=== PATIENT | female | born 1990 | race American Indian/Alaskan Native ===

== ENCOUNTER 2018-06-19 00:43 | Emergency (ER) | payer MEDICAID ==
[2018-06-19 01:04] VITALS: BP 129/80
[2018-06-19] MEDS ORDERED: XYLOCAINE 1% 20 mL INFILTRATI ONE (01:50)
[2018-06-19] MEDS ORDERED: BOOSTRIX IM ONE (01:50)
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
[2018-06-19] MEDS ORDERED: TYLENOL #3 PO ONE (02:05)
== END 2018-06-19 04:06 | disposition home or self-care (01) ==
LOC: ED 00:43
DX: S01.511A Laceration without foreign body of lip, initial encounter (principal); Z87.891 Personal history of nicotine dependence; W51.XXXA Accidental striking against or bumped into by another person, initial encounter; Y93.89 Activity, other specified; Y92.89 Other specified places as the place of occurrence of the external cause; Y99.8 Other external cause status
CPT/HCPCS: 90471; 90715; 99282

== ENCOUNTER 2019-06-18 16:47 | Outpatient (CLI) | payer MEDICAID ==
--- NOTE | 2019-06-18 19:25 | Ultrasound Report ---
LIMITED OBSTETRICAL ULTRASOUND Indication: decreased fm Shows a normal-appearing intrauterine with an estimated gestational age of 35 weeks 4 days. I do not see a significant discrepancy between head and body measurements. No anomalies are seen. Cardiac activity was noted at 150 bpm. Fetus is in a breech position. Placen ta is anterior and free of the internal cervical os. Estimated weight is 2739 g +/- 405 g. Am niotic fluid volume appears appropriate for age. MELECIO measurement was 8.3 cm which is within normal li mits. BIOPHYSICAL PROFILE breathing movements 2/2 movements 0/2 posturing tone 0/2 Qualitative amniotic fluid volume 2/2 Total score 4/8 Signer Name: Caleb Rivera MD Signed: 06/18/2019 7:20 PM Workstation Name: [id number]
[2019-06-18] MEDS ORDERED: LACTATED RINGERS 1,000 ML ONE ×2 (19:26→20:13)
[2019-06-18] MEDS ORDERED: LACTATED RINGERS 1,000 ML IV ONE (20:38)
[2019-06-18 22:45] LABS: Hematocrit 32.4 % (30.3-42.9); Hemoglobin 10.9 gm/dl (10.1-14.3); Mean Corpuscular HGB Conc 34 % (30-34); Mean Corpuscular Volume 90 fl (79-97); Platelet Count 210 K/mm3 (140-440); Red Blood Count 3.61 M/mm3 (3.65-5.03); Red Cell Distribution Width 13.2 % (13.2-15.2)
[2019-06-19] MEDS: LACTATED RINGERS 1,000 ML IV SCH ×3 (00:28→11:15)
--- NOTE | 2019-06-19 10:35 | Ultrasound Report ---
ULTRASOUND OBSTETRIC LIMITED INDICATION / CLINICAL INFORMATION: Evaluate amniotic fluid. TECHNIQUE: Transabdominal ultrasound imaging. COMPARISON: None available. FINDINGS: HEART RATE (beats per minute): 138 AMNIOTIC FLUID INDEX (cm) = 7.1 cm. Borderline low. PRESENTATION: Breech. ADDITIONAL FINDINGS: None. IMPRESSION: MELECIO equals 7.1 cm. Signer Name: Miki Sarkar Jr, MD Signed: 06/19/2019 10:30 AM Workstation Name: [id number]
--- NOTE | 2019-06-19 11:31 | History and Physical Report ---
History of Present Illness Date of examination: 06/19/19 Chief complaint: Patient admitted overnight by Dr Casas with decreased movement for observation. She is a at 37+3/7 weeks with JESSICA 07/07/19. Previous c/section for twins, decline TOLAC, desires BTL. Overnight patient had episodes of no feta monitoring. Evaluation of tracing this morning reveals an overall Category 1 tracing. Patient co-managed with [facility] for maternal obesity and late PNC History of present illness: Meds:PNV, Valtrex Allergies:NKDA POBHX: NSVDx3, C/sectionx (twins) PGYNHX: / +ve HSV PSHX: c/section PFHX: DM type 1 Past History - Obstetrical History : 5 Medications and Allergies Allergies Allergy/AdvReac Type Severity Reaction Status Date / Time No Known Allergies Allergy Verified 06/18/19 19:36 Home Medications Medication Instructions Recorded Confirmed Last Taken Type Butalbit/Acetamin/Caff/Codeine 1 each PO Q4H PRN #16 capsule 02/24/14 Unknown Rx [Fioricet-Cod 94-574-05-30 Cap] HYDROcodone/APAP 5-325 [[place] 1 each PO Q6HR PRN #14 tablet 05/18/14 Unknown Rx 5/325] Penicillin Vk [Veetids TAB] 500 mg PO QID #28 tablet 05/18/14 Unknown Rx Promethazine [Phenergan] 25 mg PO Q6H PRN #14 tablet 05/18/14 Unknown Rx Ondansetron [Zofran Odt] 4 mg PO Q6H #14 tab.rapdis 07/02/14 Unknown Rx Acetaminophen/Codeine [Tylenol 1 tab PO Q6H PRN #12 tab 06/19/18 Unknown Rx /Codeine # 3 tab] Sulfamethoxazole/Trimethoprim 1 each PO BID #14 tablet 06/19/18 Unknown Rx [Bactrim DS TAB] Active Meds: Active Medications Lactated Ringer's (Lactated Ringers) 1,000 mls @ 125 mls/hr IV DIRECT LUCIANO Last Admin: 06/19/19 11:15 Dose: 125 mls/hr Documented by: - Vital Signs Vital signs: Vital Signs Temp Pulse Resp BP 98.3 F 81 20 111/67 06/18/19 17:59 06/18/19 17:59 06/18/19 17:59 06/18/19 17:59 Temp Pulse Resp BP Pulse Ox 97.7 F 67 18 116/57 99 06/19/19 08:35 06/19/19 08:36 06/19/19 08:35 06/19/19 08:36 06/18/19 20:44 Results Result Diagrams: 06/18/19 22:21 Abnormal lab results 06/18/19 Range/Units 22:21 RBC 3.61 L (3.65-5.03) M/mm3 All other labs normal. Assessment and Plan IUP at 37+3/7 weeks decreased movement previous c/section Patient declines continuous monitoring, I have advised she stay for a compete reactive NST but she declines BPP 6/8 this morning(repeat for 4/8 last night on admission) 2 points off for breathing As patient is not in labor and declines to stay for further observation she will be discharged to home with follow upon Saturday and testing. movement and labor precautions. Kiran Whitehead MD
[2019-06-19 11:33] VITALS: BP 109/51
--- NOTE | 2019-06-22 08:20 | Ultrasound Report ---
. ULTRASOUND BIOPHYSICAL PROFILE INDICATION: repeat bpp. well-being COMPARISON: 06/18/2019 FINDINGS: heart rate is 145 beats per minute. breathing movement = 0 Gross body movement = 2 tone = 2 Qualitative amniotic fluid volume = 2 IMPRESSION: biophysical profile = 02/07 Signer Name: Miki Sarkar Jr, MD Signed: 06/22/2019 8:15 AM Workstation Name: [id number]
== END 2019-06-19 12:05 | disposition home or self-care (01) ==
LOC: TRG 16:47 → LD 21:32 → TRG 06-19 12:05
PROVIDERS: ATTEND Obstetrics & Gynecology
DX: O36.8130 Decreased fetal movements, third trimester, not applicable or unspecified (principal); O32.1XX0 Maternal care for breech presentation, not applicable or unspecified; O47.1 False labor at or after 37 completed weeks of gestation; Z3A.37 37 weeks gestation of pregnancy
CPT/HCPCS: 36415; 76815; 76816; 76819; 85027; 86592; 86850; 86900; 86901; 96360; 96361; J7120

== ENCOUNTER 2019-06-19 19:23 | Outpatient (CLI) | payer MEDICAID ==
[2019-06-19 21:43] LABS: Bilirubin,Urine NEG (Negative); Blood,Urine SM (Negative); Color,Urine Straw (Yellow); Mucus,Urine FEW /HPF; Protein,Urine <15 mg/dL mg/dL (Negative); Urobilinogen,Urine < 2.0 mg/dL (<2.0); WBC,Urine < 1.0 /HPF (0.0-6.0)
[2019-06-19 22:05] LABS: Amphetamine Screen,Urine PRESUMPTIVE NEGATIVE; Benzodiazepines Screen,Urine PRESUMPTIVE NEGATIVE; Cannabinoid Screen,Urine PRESUMPTIVE NEGATIVE; Cocaine Screen,Urine PRESUMPTIVE NEGATIVE; Methadone Screen,Urine PRESUMPTIVE NEGATIVE; Opiate Screen,Urine PRESUMPTIVE NEGATIVE
--- NOTE | 2019-06-19 22:30 | Ultrasound Report ---
Biophysical profile FINDINGS: Single fetus is identified in breech presentation. heart rate is 145 bpm. Amniotic fl uid volume is borderline low at 7.1 cm. breathing, movement, tone and qualitative A FI all score 2 for a total of 8/8. Signer Name: Fox Collins MD Signed: 06/19/2019 10:26 PM Workstation Name: [id number]
[2019-06-19 23:10] VITALS: BP 116/74
== END 2019-06-19 21:30 | disposition left against medical advice (07) ==
LOC: TRG 19:23
PROVIDERS: ATTEND Obstetrics & Gynecology
DX: O36.8120 Decreased fetal movements, second trimester, not applicable or unspecified (principal); O46.93 Antepartum hemorrhage, unspecified, third trimester; O32.1XX0 Maternal care for breech presentation, not applicable or unspecified; O47.1 False labor at or after 37 completed weeks of gestation; O26.893 Other specified pregnancy related conditions, third trimester; R10.30 Lower abdominal pain, unspecified; Z3A.37 37 weeks gestation of pregnancy
CPT/HCPCS: 59025; 76819; 80307; 81001